=== PATIENT | female | born 1980 | race Caucasian/White ===

== ENCOUNTER 2016-07-22 17:52 | Emergency (ER) | payer BC, OTHER ==
[~2016-07-22] VITALS: Ht 160 cm; Wt 53.3 kg
[2016-07-22] MEDS ORDERED: MULT-506 PO (17:54)
[2016-07-22 17:59] VITALS: TEMP 36.9; Ht 160 cm; Wt 53.3 kg
[2016-07-22] MEDS ORDERED: SODIUM CHLORIDE 0.9% 500ML 500 ML IV STA (19:40)
[2016-07-22] MEDS ORDERED: SULF800T23 PO (19:45)
[2016-07-22] MEDS ORDERED: FLNIN/ NAE (19:45)
[2016-07-22] MEDS ORDERED: BUPR8SUB19 SL (19:45)
[2016-07-22] MEDS ORDERED: ONDA4TAB10 SL (19:45)
--- NOTE | 2016-07-22 19:51 | EMERGENCY ROOM VISIT NOTE ---
History Report prepared by Cici: Ruben Eid Under the Supervision of: Dr. Nagi Martinez M.D. First contact with patient: 19:35 Chief Complaint: PELVIC PAIN Stated Complaint: PELVIC PAIN,DISCHARGE,RECURRING ISSUE History of Present Illness The patient is a 35 year old female who presents to the Emergency Room with complaints of persistent bilateral pelvic pain beginning about 2 weeks ago. She thinks that there is a bacteria in her urine. She notes she had been at the [facility] and was told she would not be treated for her pelvic pain because "it sounded chronic". The patient reports that years ago it was noted that she had an acquired water based bacteria attacking her pelvic region. She notes she had a sterilization procedure for this. She occasionally has flare ups in her pelvic area, the last of which was a few months ago, and notes it is usually accompanied with vaginal discharge that she describes as thick, white, and sometimes yellow. The patient notes that doxycycline usually relieves her pelvic flare ups. She was told at [facility] that she had a UTI. The patient denies having any fever, diarrhea, or constipation. She has had nausea and vomiting since yesterday. She has found relief of her nausea by taking Zofran. The patient denies any history of STD. Source of History: patient Onset: 2 weeks ago Position: pelvis Quality: other (pelvic pain) Timing: other (persistent) Associated Symptoms: + nausea, + vomiting, No diarrhea, No fevers Note: The patient denies constipation. Review of Systems See HPI for pertinent positives & negatives. A total of 10 systems reviewed and were otherwise negative. Past Medical & Surgical Medical Problems: (1) Gastroenteritis Surgical Problems: (1) Hx of cholecystectomy (2) Hx of colonoscopy (3) Hx of tubal ligation Family History Cancer Diabetes mellitus Gallbladder disease Hypertension Social History Smoking Status: Current Every Day Smoker Alcohol Use: none Drug Use: none Marital Status: Housing Status: lives with family Occupation Status: unemployed Current/Historical Medications Scheduled Buprenorphine Hcl (Subutex), 8 MG SL BID Doxycycline Hyclate (Vibramycin), 100 MG PO BID Fluconazole (Diflucan), 150 MG PO DIRECTED Multivitamin (Multivitamin), 1 TAB PO DAILY Sulfa/Trimethoprim (Bactrim Ds 800MG/160MG), 1 TAB PO BID Scheduled PRN Epinephrine (Epipen), 0.3 MG IM UD PRN for ALLERGIC REACTION Fluticasone Propionate (Fluticasone Propionate), 2 SPRAYS JADA DAILY PRN for Nasal Congestion Ondasetron Odt (Zofran Odt), 4 MG SL Q8 PRN for Nausea Allergies Coded Allergies: Diphenhydramine (Verified Allergy, Unknown, STOP BREATHING, 06/14/14) Naproxen (Verified Allergy, Unknown, RASH, 06/14/14) Tramadol (Verified Allergy, Unknown, Dizziness, 06/28/14) Reported by PT Wasp (Verified Allergy, Unknown, ANAPHALAXIS, 06/14/14) Physical Exam Vital Signs Date Time Temp Pulse Resp B/P Pulse Ox O2 Delivery O2 Flow Rate FiO2 07/22/16 23:14 77 18 102/68 96 07/22/16 21:16 69 16 100/61 99 Room Air 07/22/16 17:59 36.9 71 16 125/82 98 Physical Exam GENERAL: Patient is in no acute distress. HEENT: No acute trauma, normocephalic atraumatic, mucous membranes moist, no nasal congestion, no scleral icterus. NECK: No stridor, no adenopathy, no meningismus, trachea is midline. LUNGS: Clear to auscultation bilaterally, no wheeze, no rhonchi, breath sounds equal. HEART: Without murmurs gallops or rubs, regular rate and rhythm. ABDOMEN: Soft; tender to the bilateral lower pelvis and lower quadrants. bowel sounds positive, no hernias, no peritonitis. EXTREMITIES: No cyanosis or edema, full range of motion of all the joints without pain or difficulty, no signs for acute trauma. NEUROLOGIC: Oriented x 3, no acute motor or sensory deficits, no focal weakness. SKIN: No rash, no jaundice, no diaphoresis. VAGINA: No external genitalia inflammation. Yeast-like discharge noted. Speculum exam revealed white discharge; cultures where obtained. No cervicitis. Medical Decision & Procedures ER Provider Diagnostic Interpretation: Radiology results and stated below per my review and radiologist interpretation: EXAMINATION: PELVIC ULTRASOUND FINDINGS: The uterus measured 7 cm. The endometrial stripe measured 6 mm. The right ovary measured 3.5 cm maximum dimension. Normal vascular flow.. The left ovary measured 3.2 cm maximum dimension. Normal vascular flow. There is no ultrasonographic evidence of ovarian torsion. It should be noted that ovarian torsion can be present with normal Doppler ultrasonographic findings. There was no evidence of pathologic free pelvic fluid. IMPRESSION: Normal study Electronically signed by: Gregorio Aguilar M.D. 07/22/2016 9:09 PM Dictated Date/Time: 07/22/2016 9:08 PM Laboratory Results 07/22/16 20:20 Red Blood Count 4.96, Mean Corpuscular Volume 80.6, Mean Corpuscular Hemoglobin 26.6, Mean Corpuscular Hemoglobin Concent 33.0, Mean Platelet Volume 8.7, Neutrophils (%) (Auto) 48.9, Lymphocytes (%) (Auto) 44.7, Monocytes (%) (Auto) 4.4, Eosinophils (%) (Auto) 1.6, Basophils (%) (Auto) 0.3, Neutrophils # (Auto) 3.89, Lymphocytes # (Auto) 3.56, Monocytes # (Auto) 0.35, Eosinophils # (Auto) 0.13, Basophils # (Auto) 0.02 07/22/16 20:20 Test 07/22/16 19:10 07/22/16 20:20 07/22/16 22:29 Urine Color DK YELLOW Urine Appearance CLOUDY (CLEAR) Urine pH 5.5 (4.5-7.5) Urine Specific [place] 1.031 (1.000-1.030) Urine Protein NEG (NEG) Urine Glucose (UA) NEG (NEG) Urine Ketones TRACE (NEG) Urine Occult Blood NEG (NEG) Urine Nitrite NEG (NEG) Urine Bilirubin NEG (NEG) Urine Urobilinogen NEG (NEG) Urine Leukocyte Esterase NEG (NEG) Urine WBC (Auto) 1-5 /hpf (0-5) Urine RBC (Auto) 5-10 /hpf (0-4) Urine Hyaline Casts (Auto) 1-5 /lpf (0-5) Urine Epithelial Cells (Auto) >30 /lpf (0-5) Urine Bacteria (Auto) NEG (NEG) Urine Pathogenic Casts /lpf (0) Urine Mucus PRESENT (NONE PRSENT) Urine Test NEG (NEG) White Blood Count 7.96 K/uL (4.8-10.8) Red Blood Count 4.96 M/uL (4.2-5.4) Hemoglobin 13.2 g/dL (12.0-16.0) Hematocrit 40.0 % (37-47) Mean Corpuscular Volume 80.6 fL (80-100) Mean Corpuscular Hemoglobin 26.6 pg (25-34) Mean Corpuscular Hemoglobin Concent 33.0 g/dl (32-36) Platelet Count 313 K/uL (130-400) Mean Platelet Volume 8.7 fL (7.4-10.4) Neutrophils (%) (Auto) 48.9 % Lymphocytes (%) (Auto) 44.7 % Monocytes (%) (Auto) 4.4 % Eosinophils (%) (Auto) 1.6 % Basophils (%) (Auto) 0.3 % Neutrophils # (Auto) 3.89 K/uL (1.4-6.5) Lymphocytes # (Auto) 3.56 K/uL (1.2-3.4) Monocytes # (Auto) 0.35 K/uL (0.11-0.59) Eosinophils # (Auto) 0.13 K/uL (0-0.5) Basophils # (Auto) 0.02 K/uL (0-0.2) RDW Standard Deviation 40.8 fL (36.4-46.3) RDW Coefficient of Variation 14.0 % (11.5-14.5) Immature Granulocyte % (Auto) 0.1 % Immature Granulocyte # (Auto) 0.01 K/uL (0.00-0.02) Anion Gap 5.0 mmol/L (3-11) Est Creatinine Clear Calc Drug Dose 92.8 ml/min Estimated GFR () 130.1 Estimated GFR (Non- 112.3 BUN/Creatinine Ratio 11.1 (10-20) Calcium Level 8.6 mg/dl (8.5-10.1) Chemistry Specimen Hemolysis Date/Time Source Procedure Growth Status 07/22/16 22:29 Vaginal Swab Trichomonas Preparation - Final Complete Laboratory results reviewed by me. Trace blood, trace leukocytosis, is negative. Medications Administered Medications (Trade) Dose Ordered Sig/Anibal Route Start Time Stop Time Status Last Admin Dose Admin Sodium Chloride (Nss 500ml) 500 ml @ 999 mls/hr Q31M STAT IV 07/22/16 19:40 07/22/16 20:10 DC 07/22/16 20:33 999 MLS/HR Acetaminophen (Tylenol Tab) 1,000 mg NOW STAT PO 07/22/16 20:22 07/22/16 20:24 DC 07/22/16 20:33 1,000 MG Ceftriaxone Sodium (Rocephin Inj) 0.5 gm NOW STAT IV 07/22/16 22:29 07/22/16 22:31 DC 07/22/16 22:48 0.5 GM Doxycycline Hyclate (Vibramycin Cap) 100 mg ONE ONCE PO 07/22/16 22:30 07/22/16 22:31 DC 07/22/16 22:49 100 MG Fluconazole (Diflucan Tab) 150 mg NOW ONCE PO 07/22/16 22:30 07/22/16 22:31 DC 07/22/16 22:50 150 MG ED Course 1936: The patient was evaluated in room C11B. A complete history and physical exam was performed. 1939: Ordered NSS 500 ml @ 999 mls/hr IV. 2021: Ordered Acetaminophen 1,000 mg PO. 2228: Ordered Rocephin Inj 0.5 mg IV. 2229: Ordered Diflucan tab 150 mg PO, and Doxycycline Hyclate 100 mg PO. 2234: Reevaluated the patient. Discussed results and discharge instructions: She verbalized understanding and agreement. The patient is ready for discharge. Medical Decision Differentials include pelvic inflammatory disease, bacterial vaginosis, yeast infection, ovarian cyst, UTI, endometriosis, and acute on chronic pain. There is no leukocytosis or concerning anemia. No significant electrolyte abnormality or kidney failure. Urinalysis shows contamination, no obvious infection. testing is negative. Pelvic ultrasound shows no evidence for ovarian cyst or other pelvic pathology. Pelvic exam reveals some whitish discharge consistent with possible yeast. Cultures were obtained. On exam, there was no peritonitis, the patient was not febrile or toxic. The patient was given Tylenol for pain, she received IV saline. Because of concerns for an STD, she was given IV ceftriaxone and oral doxycycline. She was given oral Diflucan for the possibility of a vaginal yeast infection. The patient is being discharged on doxycycline twice a day for 10 days, this has helped her in the past. She will be on every other day Diflucan for 2 more doses. [id number] pain medications were suggested. She can call here for her vaginal culture results in a few days. Impression Primary Impression: Vaginal discharge Additional Impression: Pelvic pain Scribe Attestation The scribe's documentation has been prepared under my direction and personally reviewed by me in its entirety. I confirm that the note above accurately reflects all work, treatment, procedures, and medical decision making performed by me. Departure Information Dispostion Home / Self-Care Prescriptions Fluconazole (DIFLUCAN) 150 Mg Tab 150 MG PO DIRECTED, #2 TAB take 1 tab wednesday and then the other tablet wednesday--every other day Prov: Nagi Martinez M.D. 07/22/16 Doxycycline Hyclate (VIBRAMYCIN) 100 Mg Cap 100 MG PO BID for 10 Days, #20 CAP Prov: Nagi Martinez M.D. 07/22/16 Patient Instructions My [facility] Additional Instructions doxycycline 2x per day for 10 days diflucan 1 tab every other day for 2 more days call here in 5 days for the vaginal culture results use otc monostat vaginally for 5 nights return if worsening otc pain meds as needed follow with josé luis dunbar for recheck Problem Qualifiers
[2016-07-22 20:13] LABS: URINE APPEARANCE CLOUDY (CLEAR); URINE COLOR DK YELLOW; URINE EPITHELIAL CELL AUTO >30 /lpf (0-5); URINE NITRITE NEG (NEG); URINE PH 5.5 (4.5-7.5); URINE SPECIFIC GRAVITY 1.031 (1.000-1.030); UROBILINOGEN NEG (NEG)
[2016-07-22 20:15] LABS: MANUAL MICROSCOPIC REQUIRED? NO; REVIEW REQ? YES
[2016-07-22 20:16] LABS: URINE BILIRUBIN NEG (NEG)
[2016-07-22] MEDS ORDERED: ACETAMINOPHEN 500 MG TAB PO STA (20:22)
[2016-07-22 20:26] LABS: URINE MUCUS PRESENT (NONE PRSENT)
[2016-07-22 20:27] LABS: BASO % 0.3 %; BASO ABS # 0.02 K/uL (0-0.2); COMPLETE YES; EOS % 1.6 %; IG% 0.1 %; LYMPH % 44.7 %; LYMPH ABS # 3.56 K/uL (1.2-3.4); MEAN CELL VOLUME 80.6 fL (80-100); MEAN CORPUSCULAR HEMOGLOBIN 26.6 pg (25-34); MEAN PLATELET VOLUME 8.7 fL (7.4-10.4); MONO % 4.4 %; NEUT % 48.9 %; PLATELET COUNT 313 K/uL (130-400); RED BLOOD COUNT 4.96 M/uL (4.2-5.4); WHITE BLOOD COUNT 7.96 K/uL (4.8-10.8)
--- NOTE | 2016-07-22 21:11 | DIAGNOSTIC IMAGING REPORT ---
EXAMINATION: PELVIC ULTRASOUND CLINICAL HISTORY: pain, posse cyst PELVIC PAIN COMPARISON STUDY: None FINDINGS: The uterus measured 7 cm. The endometrial stripe measured 6 mm. The right ovary measured 3.5 cm maximum dimension. Normal vascular flow.. The left ovary measured 3.2 cm maximum dimension. Normal vascular flow. There is no ultrasonographic evidence of ovarian torsion. It should be noted that ovarian torsion can be present with normal Doppler ultrasonographic findings. There was no evidence of pathologic free pelvic fluid. IMPRESSION: Normal study Electronically signed by: Gregorio Agiular M.D. 07/22/2016 9:09 PM Dictated Date/Time: 07/22/2016 9:08 PM
[2016-07-22 21:20] LABS: BUN/CREATININE RATIO 11.1 (10-20); CALCIUM 8.6 mg/dl (8.5-10.1); CREATININE 0.7 mg/dl (0.60-1.20); POTASSIUM 3.9 mmol/L (3.5-5.1)
[2016-07-22] MEDS ORDERED: EPP3/2 IM (21:39)
[2016-07-22 21:40] LABS: PREG INTERNAL NEGATIVE QC NEG CLEAR BACKGROUND; PREG INTERNAL POSITIVE QC POS CONTROL LINE
[2016-07-22] MEDS ORDERED: CEFTRIAXONE SOD INJ 1 GM ADDVIAL IV STA (22:29)
[2016-07-22] MEDS ORDERED: DOXYCYCLINE HYCLATE 100 MG CAP PO ONE (22:30)
[2016-07-22] MEDS ORDERED: FLUCONAZOLE 50 MG TAB PO ONE (22:30)
[2016-07-22] MEDS ORDERED: FLUC150T PO (22:36)
[2016-07-22] MEDS ORDERED: DOXY100C PO (22:36)
[2016-07-22 23:14] VITALS: BP 102/68; PULSE 77; O2SAT 96
[2016-07-25 03:38] LABS: CHLAMYDIA TRACH RNA*** NOT DETECTED (NOT DETECTED); GC (NEIS GONORRHOEAE)RNA** NOT DETECTED (NOT DETECTED)
== END 2016-07-22 23:14 | disposition home or self-care (01) ==
LOC: C.EDB 17:53 → C.EDC 23:14
DX: N89.8 Other specified noninflammatory disorders of vagina (principal); R10.2 Pelvic and perineal pain; F17.210 Nicotine dependence, cigarettes, uncomplicated